=== PATIENT | male | born 2000 | race Caucasian/White ===

== ENCOUNTER 2022-05-13 21:23 | Emergency (ER) | payer OTHER ==
[2022-05-13] MEDS ORDERED: MONODOX100 MG PO (22:15)
== END 2022-05-13 22:21 | disposition home or self-care (01) ==
LOC: ER1 21:23
DX: S40.852A Superficial foreign body of left upper arm, initial encounter (principal); W45.8XXA Other foreign body or object entering through skin, initial encounter; Y92.828 Other wilderness area as the place of occurrence of the external cause
CPT/HCPCS: 73090; 99283